=== PATIENT | male | born 1980 | race Caucasian/White ===

== ENCOUNTER 2017-01-19 16:00 | Emergency (ER) | payer OTHER ==
[~2017-01-19] VITALS: Ht 182.9 cm; Wt 102.3 kg
[2017-01-19 17:40] LABS: HEMATOCRIT 39.1 % (38.0-50.0); MCH 29.8 PG (29.0-34.0); MCHC 34.3 G/DL (30.0-36.0); MCV 87.1 FL (86-99); MEAN PLAT.VOLUME 9.5 uM^3 (9.0-12.4); PLATELET COUNT 208 K/uL (156-360); RBC DIS.WIDTH-CV 13.3 % (11.8-14.6); RBC DIS.WIDTH-SD 42.2 % (39-53); RED BLOOD COUNT 4.49 M/uL (4.00-5.50); WHITE BLOOD COUNT 5.7 K/uL (4.1-10.2)
[2017-01-19 17:48] LABS: CHLORIDE 106 mEq/L (99-109); POTASSIUM 4.2 mEq/L (3.7-5.4); SODIUM 140 mEq/L (136-147)
[2017-01-19 17:50] LABS: GLUCOSE 101 mg/dL (70-99)
[2017-01-19 17:52] LABS: ANION GAP 10 MEQ/L (2-14); TOTAL BILIRUBIN 0.4 mg/dL (0.0-1.0)
[2017-01-19 17:54] LABS: ALKALINE PHOSPHATASE 72 IU/L (3-129); GFR ESTIMATE (CALCULATED) > 59 mL/min/
[2017-01-19 17:55] LABS: UREA NITROGEN (BUN) 12 mg/dL (9-23)
[2017-01-19] MEDS ORDERED: MOTRIN800 MG PO (18:14)
[2017-01-19] MEDS ORDERED: ULTRAM50 MG PO (19:02)
[2017-01-19 19:05] VITALS: BP 112/78
== END 2017-01-19 19:06 | disposition home or self-care (01) ==
LOC: EME 16:00
PROVIDERS: Nurse Practitioner Family
DX: L03.116 Cellulitis of left lower limb (principal)
CPT/HCPCS: 73590; 80053; 83605; 85027; 87040; 99281; 99284; J0696; J1885; J7050